=== PATIENT | female | born 2000 | race Hispanic/Latino ===

== ENCOUNTER 2022-02-24 21:39 | Emergency (ER) | payer OTHER ==
[~2022-02-24] VITALS: Ht 152.4 cm; Wt 68.0 kg
[2022-02-24 22:10] LABS: BASOPHILS % (AUTO) 0.4 % (0.0-5.0); EOSINOPHILS % (AUTO) 0.2 % (0.0-8.0); LYMPHOCYTES % (AUTO) 22.3 % (21.0-51.0); MEAN CORPUSCULAR HEMOGLOBIN 29.6 pg (27.0-33.0); MEAN CORPUSCULAR VOLUME 92.6 fL (80-100); MONOCYTES % (AUTO) 6.6 % (3.0-13.0); NEUTROPHILS % (AUTO) 70.1 % (40.0-77.0); PLATELET COUNT (AUTO) 270 K/uL (130-400); RED BLOOD CELL COUNT(AUTO) 4.86 MIL/uL (4.00-5.50); RED CELL DISTRIBUTION WIDTH 14.4 % (11.0-15.5); WHITE BLOOD COUNT (AUTO) 16.9 K/uL (4.8-10.8)
[2022-02-24 22:11] LABS: APPEARANCE,URINE Clear (CLEAR); BILIRUBIN,URINE Negative (NEGATIVE); COLOR,URINE Yellow (YELLOW); GLUCOSE, URINE (UA) Negative (NEGATIVE); KETONES,URINE Negative (NEGATIVE); LEUKOCYTE ESTERASE ,URINE Negative (NEGATIVE); NITRATE,URINE Negative (NEGATIVE); OCCULT BLOOD,URINE Negative (NEGATIVE); PH,URINE 5.5 (5.0-8.0); PROTEIN,URINE Negative (NEGATIVE); UROBILINOGEN,URINE 0.2 mg/dL (0.2-1.0)
[2022-02-24 22:22] LABS: CREATININE 0.7 mg/dL (0.5-1.5); POTASSIUM 3.7 mmol/L (3.5-5.1)
[2022-02-24 22:25] VITALS: BP 129/76
[2022-02-24] MEDS ORDERED: 0.9%NACL 1000ML 1,000 ML IV SCH (22:30)
[2022-02-24 22:33] LABS: ALBUMIN 3.7 g/dL (3.5-5.0); BILIRUBIN,TOTAL 0.3 mg/dL (0.2-1.0); TOTAL PROTEIN, SERUM 8.2 g/dL (6.0-8.3)
== END 2022-02-24 23:03 | disposition left against medical advice (07) ==
LOC: EDH 21:39
DX: R10.30 Lower abdominal pain, unspecified (principal); Z98.890 Other specified postprocedural states
CPT/HCPCS: 36415; 80053; 81003; 83690; 84702; 85025

== ENCOUNTER 2022-05-30 14:57 | Emergency (ER) | payer MEDICAID, MEDICARE, OTHER ==
[~2022-05-30] VITALS: Ht 152.4 cm; Wt 72.6 kg
[2022-05-30 15:15] VITALS: BP 136/89
[2022-05-30] MEDS ORDERED: CEPH500B PO (15:47)
[2022-05-30] MEDS ORDERED: DEXAMETHASONE SOD PHOSPHATE 10MG/ML 1ML VIAL IM ONE (16:00)
[2022-05-30] MEDS ORDERED: CEPHALEXIN 500 MG CAPSULE PO ONE (16:00)
== END 2022-05-30 16:05 | disposition home or self-care (01) ==
LOC: EDH 14:57
DX: R59.0 Localized enlarged lymph nodes (principal); J02.9 Acute pharyngitis, unspecified
CPT/HCPCS: 99283; 87880; 96372; J1100

== ENCOUNTER 2023-12-30 21:01 | Emergency (ER) | payer BC, MEDICAID ==
[~2023-12-30] VITALS: Ht 152.4 cm; Wt 83.9 kg
[~2023-12-30 21:01] MED LIST: CEPH500B PO
[2023-12-30 21:47] LABS: RAPID GROUP A STREP negative (NEGATIVE)
[2023-12-30 21:56] LABS: COVID19 (SARS ANTIGEN RAPID) PRESUMPTIVE NEGATIVE (NEGATIVE); INFLUENZA TYPE A Negative For Type A (NEGATIVE); INFLUENZA TYPE B Negative For Type B (NEGATIVE)
[2023-12-30] MEDS: ONDANSETRON ODT 4MG TAB SL ONE (23:16)
[2023-12-30 23:20] LABS: APPEARANCE,URINE CLEAR (CLEAR); BILIRUBIN,URINE NEGATIVE (NEGATIVE); COLOR,URINE LIGHT-YELLOW (YELLOW); GLUCOSE, URINE (UA) NEGATIVE (NEGATIVE); KETONES,URINE 20 mg/dL (NEGATIVE); LEUKOCYTE ESTERASE ,URINE NEGATIVE Leu/uL (NEGATIVE); NITRATE,URINE NEGATIVE (NEGATIVE); PH,URINE 7.5 (5.0-8.0); PROTEIN,URINE NEGATIVE (NEGATIVE); UROBILINOGEN,URINE 0.2 mg/dL (0.2-1.0)
[2023-12-30 23:22] LABS: ADD UA MICROSCOPIC YES; HCG,QUALITATIVE URINE NEGATIVE (NEGATIVE)
[2023-12-30 23:24] LABS: SQUAMOUS EPITHELIAL CELL,UR RARE /HPF (0-2)
[2023-12-30] MEDS ORDERED: HYDR-3421 PO (23:51)
[2023-12-30] MEDS ORDERED: ONDA4TAB10 PO (23:51)
[2023-12-30] MEDS: ACETAMINOPHEN 325 MG TAB PO ONE (23:52)
[2023-12-31] MEDS: KETOROLAC 60 MG VIAL (30MG/ML) IM SCH (00:07)
[2023-12-31 00:41] VITALS: BP 124/67; PULSE 72; RESP 16; O2SAT 100
== END 2023-12-31 00:44 | disposition home or self-care (01) ==
LOC: EDH 21:01
DX: B34.9 Viral infection, unspecified (principal); R11.0 Nausea; R51.9 Headache, unspecified; F41.9 Anxiety disorder, unspecified; Z20.822 Contact with and (suspected) exposure to COVID-19
CPT/HCPCS: 99283; 87426; 87880; 87804 ×2; 81001; 81025; 96372; J1885